=== PATIENT | female | born 1985 | race Caucasian/White ===

== ENCOUNTER 2018-01-03 08:02 | Emergency (ER) | payer MEDICAID ==
[~2018-01-03] VITALS: Ht 175.3 cm; Wt 91.0 kg
[~2018-01-03 08:02] MED LIST: CONCCAP2; FIORIC PO; PERC5TAB12 PO
[2018-01-03 08:08] VITALS: BP 134/78; PULSE 126; RESP 16; TEMP 98.5; O2SAT 96
[2018-01-03] MEDS ORDERED: ACETAMINOPHEN 500 MG CPLT PO ONE (09:45)
--- NOTE | 2018-01-03 10:22 | PD ---
HPI Chief Complaint: Cold / Flu Symptoms Time Seen by Provider: 09:02 Travel History International Travel<30 days: No Contact w/Intl Traveler<30days: No Traveled to known affect area: No History of Present Illness HPI Is is a 32-year-old female here with flulike illness 2 days. She reports subjective fever, sore throat, cough, nasal congestion. Symptoms severity is moderate. No aggravating or alleviating factors. She has pain with swallowing but is able to eat, drink, swallowed secretions. No change in voice. No sick contacts or foreign travel. PFSH Past Medical History Medical History: Denies Significant Hx Hx Anticoagulant Therapy: No Diabetes: No Diminished Hearing: No Tetanus Vaccination: < 5 Years ?: Not Past Surgical History Section: Yes Social History Alcohol Use: No Tobacco Use: No Substance Use: No Allergies-Medications (Allergen,Severity, Reaction): Coded Allergies: No Known Allergies (Unverified Adverse Reaction, Unknown, 01/03/18) Reported Meds & Prescriptions Reported Meds & Active Scripts Active No Active Prescriptions or Reported Medications Review of Systems Except as stated in HPI: all other systems reviewed are Neg General / Constitutional: Positive: Fever Eyes: No: Visual changes HENT: Positive: Sore Throat, Congestion Cardiovascular: No: Chest Pain or Discomfort Respiratory: Positive: Cough Gastrointestinal: No: Abdominal Pain Genitourinary: No: Dysuria Physical Exam Narrative GENERAL: Alert well-appearing 32-year-old female SKIN: Warm and dry. No rash HEAD: Normocephalic. EYES: No injection or drainage. Ear/nose/throat: No TM erythema. Clear nasal discharge. Mild pharyngeal erythema without tonsillar hypertrophy or exudate. NECK: Supple. No meningismus CARDIOVASCULAR: Regular rate and rhythm without murmurs, gallops, or rubs. RESPIRATORY: Breath sounds equal bilaterally. No accessory muscle use. GASTROINTESTINAL: Abdomen soft, non-tender, nondistended. MUSCULOSKELETAL: No cyanosis, or edema. BACK: No CVA tenderness. Data Data Last Documented VS Vital Signs Date Time Temp Pulse Resp B/P (MAP) Pulse Ox O2 Delivery O2 Flow Rate FiO2 01/03/18 10:27 98 98 01/03/18 08:08 98.5 16 134/78 (96) Orders Orders Group A Rapid Strep Screen (01/03/18 09:42) Influenzae A/B Antigen (01/03/18 09:42) Acetaminophen (Tylenol) (01/03/18 09:45) Strep Culture (Group A) (01/03/18 09:56) Ed Discharge Order (01/03/18 10:22) [facility] Medical Decision Making Medical Screen Exam Complete: Yes Emergency Medical Condition: Yes Differential Diagnosis Influenza, strep pharyngitis, bronchitis, pneumonia Narrative Course This is a 32-year-old female here with flulike illness 2 days. She is nontoxic appearing. She was mildly tachycardic on arrival. On recheck heart rate was down to 104. Influenza and strep screen is negative. Symptom and treatment discussed with patient. Diagnosis Primary Impression: Influenza-like illness Referrals: Primary Care Physician Additional Instructions: Tylenol and ibuprofen for fever and pain. Stay hydrated by drinking fluids such as Gatorade. If you have new or worsening symptoms Scripts Oseltamivir (Tamiflu) 75 Mg Cap 75 MG PO BID for Mgmt Viral Infection for 5 Days, #10 CAP 0 Refills Prov: Eden Truong 01/03/18 Disposition: 01 DISCHARGE HOME Condition: Stable Eden Truong Jan 03, 2018 10:22
[2018-01-03] MEDS ORDERED: OSEL75 PO (10:45)
== END 2018-01-03 10:27 | disposition home or self-care (01) ==
LOC: PHED 08:02 → PHEFT 10:27
DX: R50.9 Fever, unspecified (principal); J02.9 Acute pharyngitis, unspecified; R05 Cough; R09.81 Nasal congestion; R00.0 Tachycardia, unspecified
CPT/HCPCS: 87081; 87804; 87880; 99283

== ENCOUNTER 2018-03-24 14:22 | Emergency (ER) | payer SELFPAY ==
[~2018-03-24] VITALS: Ht 170.2 cm; Wt 89.0 kg
[~2018-03-24 14:22] MED LIST changes: -CONCCAP2; -FIORIC PO; +OSEL75 PO; -PERC5TAB12 PO
[2018-03-24 14:24] VITALS: BP 135/88; PULSE 102; RESP 16; TEMP 98.7; O2SAT 98
[2018-03-24] MEDS ORDERED: PENI500T PO (14:45)
--- NOTE | 2018-03-24 14:45 | PD ---
HPI Chief Complaint: ENT Complaint Time Seen by Provider: 14:33 Travel History International Travel<30 days: No Contact w/Intl Traveler<30days: No Traveled to known affect area: No History of Present Illness HPI 32-year-old female here with sore throat 2 days. Subjective fever. Denies nasal congestion or cough. No difficulty swallowing. No change in voice. Symptom severity is moderate. No aggravating or alleviating factors. PFSH Past Medical History Medical History: Denies Significant Hx Hx Anticoagulant Therapy: No Diabetes: No Diminished Hearing: No ?: Not LMP: 03/09/2018 Past Surgical History Section: Yes Social History Alcohol Use: No Tobacco Use: No Substance Use: No Allergies-Medications (Allergen,Severity, Reaction): Coded Allergies: No Known Allergies (Unverified Adverse Reaction, Unknown, 03/24/18) Reported Meds & Prescriptions Reported Meds & Active Scripts Active Tamiflu (Oseltamivir Phosphate) 75 Mg Cap 75 Mg PO BID 5 Days Review of Systems Except as stated in HPI: all other systems reviewed are Neg General / Constitutional: Positive: Fever Eyes: No: Visual changes HENT: Positive: Sore Throat Cardiovascular: No: Chest Pain or Discomfort Respiratory: No: Shortness of Breath Gastrointestinal: No: Abdominal Pain Genitourinary: No: Dysuria Physical Exam Narrative GENERAL: Alert and well-appearing 32-year-old female SKIN: Warm and dry. HEAD: Normocephalic. EYES: No scleral icterus. No injection or drainage. ENT; notable pharyngeal erythema with tonsillar hypertrophy and scant exudate. Uvula is midline. Airways patent. Normal phonation. Mucous members are moist. NECK: Supple, trachea midline. Mild anterior cervical lymphadenopathy CARDIOVASCULAR: Regular rate and rhythm without murmurs, gallops, or rubs. RESPIRATORY: Breath sounds equal bilaterally. No accessory muscle use. GASTROINTESTINAL: Abdomen soft, non-tender, nondistended. MUSCULOSKELETAL: No cyanosis, or edema. Data Data Last Documented VS Vital Signs Date Time Temp Pulse Resp B/P (MAP) Pulse Ox O2 Delivery O2 Flow Rate FiO2 03/24/18 14:24 98.7 102 16 135/88 (104) 98 MDM Medical Decision Making Medical Screen Exam Complete: Yes Emergency Medical Condition: Yes Differential Diagnosis Strep pharyngitis, viral pharyngitis, mononucleosis, URI Narrative Course 32-year-old female here with exudative tonsillitis. She is well-appearing. Vital signs are stable. Diagnosis Primary Impression: Pharyngitis Qualified Codes: J02.9 - Acute pharyngitis, unspecified Referrals: Primary Care Physician Additional Instructions: Antibiotics as directed. Tylenol or ibuprofen for fever and pain. Stay well hydrated. Scripts Penicillin V Potassium (Penicillin V Potassium) 500 Mg Tab 500 MG PO BID for Infection for 10 Days, #20 TAB 0 Refills Prov: Eden Truong 03/24/18 Disposition: 01 DISCHARGE HOME Condition: Stable Eden Truong Mar 24, 2018 14:45
== END 2018-03-24 14:57 | disposition home or self-care (01) ==
LOC: PHEFT 14:22
DX: J02.9 Acute pharyngitis, unspecified (principal)
CPT/HCPCS: 99283